=== PATIENT | female | born 1970 | race African-American/Black ===

== ENCOUNTER 2023-05-21 13:02 | Emergency (ER) | payer OTHER ==
[~2023-05-21] VITALS: Ht 167.6 cm; Wt 175.0 kg
[2023-05-21 13:13] VITALS: BP 100/56; PULSE 56; RESP 20; TEMP 98.7; O2SAT 99
[2023-05-21] MEDS ORDERED: NAPR-1074 MT (16:46)
== END 2023-05-21 17:45 | disposition home or self-care (01) ==
LOC: ER 13:02
DX: M17.0 Bilateral primary osteoarthritis of knee (principal); I10 Essential (primary) hypertension
CPT/HCPCS: 73562; 99283